=== PATIENT | male | born 1945 | race Caucasian/White ===

== ENCOUNTER 2017-09-08 20:30 | Inpatient (IN) | payer MEDICARE, MEDICAID ==
--- NOTE | 2017-09-08 21:03 | ED Physician Chart ---
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 Patient had right scrotal abrasion and skin abrasion behind right knee. Allergies:: Allergies Allergy/AdvReac Type Severity Reaction Status Date / Time No Known Allergies Allergy Verified 09/08/17 20:37 Vitals:: Vital Signs - 8 hr 09/08/17 20:35 Temp 97.9 F HR 96 RR 18 BP 126/84 O2 Sat % 95 ED Review of Systems - Review of Systems General/Constitutional: No fever Skin: Skin lesions Head: No headache Eyes: No pain ENT: No nasal drainage Neck: No neck pain Cardio Vascular: No chest pain Pulmonary: No cough GI: No nausea, No vomiting Musculoskeletal: No bone or joint pain Neurological: No seizure, No dizziness ED Past Medical History - Past Medical History Past Medical History: HTN, DM Social History: Non Smoker (former smoker), No Alcohol, No Drug Use Surgical History: Appendectomy, other (bilateral BKAs) Family Medical History - Family Member Mother History Unknown: Yes Ethnicity: Non- ED Physical Exam - Physical Examination General/Constitutional: Awake Head: Atraumatic Eyes: PERRL Other Skin comments:: right scrotal abrasion and skin abrasion behind right knee Neck: No nuchal rigidity Respiratory: No Wheeze/Rhonchi/Rales Cardio Vascular: RRR, No murmur, gallop, rubs, NL S1 S2 GI: No tenderness/rebounding/guarding Other GI comments:: mid-abdomen incision well healed Other Extremities comments:: Bilateral BKAs Neuro/Psych: Alert/oriented ED Labs/Radiology/EKG Results - Lab Results Results: Laboratory Last Values WBC 7.3 Th/cmm (4.8-10.8) 09/08/17 21:19 RBC 4.97 Mil/cmm (3.80-5.80) 09/08/17 21:19 Hgb 16.0 gm/dL (12-16) 09/08/17 21:19 Hct 47.6 % (41.0-60) 09/08/17 21:19 MCV 95.8 fl (80-99) 09/08/17 21:19 MCH 32.2 pg (27.0-31.0) H 09/08/17 21:19 MCHC Differential 33.6 pg (28.0-36.0) 09/08/17 21:19 RDW 13.5 % (11.5-20.0) 09/08/17 21:19 Plt Count 150 Th/cmm (150-400) 09/08/17 21:19 MPV 7.2 fl 09/08/17 21:19 Neutrophils % 50.3 % (40.0-80.0) 09/08/17 21:19 Lymphocytes % 33.7 % (20.0-50.0) 09/08/17 21:19 Monocytes % 8.7 % (2.0-10.0) 09/08/17 21: Eosinophils % 6.3 % (0.0-5.0) H 09/08/17 21: Basophils % 1.0 % (0.0-2.0) 09/08/17 21:19 PT 10.0 SECONDS (9.5-11.5) 09/08/17 21:19 INR 0.96 (0.5-1.4) 09/08/17 21:19 PTT (Actin FS) 26.5 SECONDS (26.0-38.0) 09/08/17 21:19 Sodium 132 mEq/L (136-145) L 09/08/17 21:19 Potassium 4.5 mEq/L (3.5-5.1) 09/08/17 21:19 Chloride 98 mEq/L (98-107) 09/08/17 21:19 Carbon Dioxide 27.7 mEq/L (21.0-31.0) 09/08/17 21:19 Anion Gap 10.8 (7.0-16.0) 09/08/17 21:19 BUN 27 mg/dL (7-25) H 09/08/17 21:19 Creatinine 1.3 mg/dL (0.7-1.3) 09/08/17 21:19 Est GFR ( Amer) TNP 09/08/17 21:19 Est GFR (Non-Af Amer) TNP 09/08/17 21:19 BUN/Creatinine Ratio 20.8 09/08/17 21:19 Glucose 429 mg/dL (70-105) H 09/08/17 21:19 Calcium 9.6 mg/dL (8.6-10.3) 09/08/17 21:19 Magnesium 2.1 mg/dL (1.9-2.7) 09/08/17 21:19 Total Bilirubin 0.6 mg/dL (0.3-1.0) 09/08/17 21:19 AST 16 U/L (13-39) 09/08/17 21:19 ALT 17 U/L (7-52) 09/08/17 21:19 Alkaline Phosphatase 65 U/L (34-104) 09/08/17 21:19 Troponin I 0.02 ng/mL (0.01-0.05) 09/08/17 21: B-Natriuretic Peptide 215.0 pg/mL (5.0-100.0) H 09/08/17 21:19 Total Protein 7.5 gm/dL (6.0-8.3) 09/08/17 21: Albumin 3.9 gm/dL (4.2-5.5) L 09/08/17 21:19 Globulin 3.6 gm/dL 09/08/17 21:19 Albumin/Globulin Ratio 1.1 (1.0-1.8) 09/08/17 21: TSH 2.50 uIU/ml (0.34-5.60) 09/08/17 21:19 - Radiology Results Results: CXR: No focal consolidation - EKG Interpretations EKG Time:: 21:12 Rate & Rhythm: 94 bpm, sinus rhythm Intervals: Prolonged AK interval Comments:: Non specific changes of ST-T, V2-V5 ED Assessment - Assessment General Assessment: Dehydration Hyponatremia DM II, uncontrolled Bilateral BKAs Assessment/Comments:: CBC, CMP, Trop I, BNP, UA CXR, EKG NS 1L IV bolus Insulin regular 10 unit SQ Admit to telemetry ED Septic Shock - . Is Septic Shock (SBP<90, OR Lactate>4 mmol\L) present?: No - <6hrs of presentation: Vital Signs: Vital Signs - 8 hr 09/08/17 20:35 Temp 97.9 F HR 96 RR 18 BP 126/84 O2 Sat % 95 ED Reassessment (Disposition) - Reassessment Reassessment Condition:: Improved - Patient Disposition Admitting Medical Physician:: Ronald Gutierrez ED Discharge Plan - Patient Disposition Admit/Discharge/Transfer: Acute Care w/in this hosp Condition at Disposition: Stable
[2017-09-08 21:31] LABS: % EOSINOPHILS 6.3 % (0.0-5.0); % LYMPHOCYTES 33.7 % (20.0-50.0); % MONOCYTES 8.7 % (2.0-10.0); % NEUTROPHILS 50.3 % (40.0-80.0); BASOPHILE ABSOLUTE 0.1 Th/cumm (0-0.2); EOSINOPHILE ABSOLUTE 0.5 Th/cmm (0.1-0.4); HEMATOCRIT 47.6 % (41.0-60); LYMPHOCYTE ABSOLUTE 2.5 Th/cmm (1.5-3.0); MEAN CELL VOLUME 95.8 fl (80-99); MEAN CORPUSCULAR HEMOGLOBIN 32.2 pg (27.0-31.0); MEAN CORPUSCULAR HGB CONC 33.6 pg (28.0-36.0); MEAN PLATELET VOLUME 7.2 fl; MONOCYTE ABSOLUTE 0.6 Th/cmm (0.3-1.0); NEUTROPHILE ABSOLUTE 3.6 Th/cmm (1.8-8.0); PLATELET COUNT 150 Th/cmm (150-400); RED BLOOD COUNT 4.97 Mil/cmm (3.80-5.80); RED CELL DISTRIBUTION WIDTH 13.5 % (11.5-20.0); WHITE BLOOD COUNT 7.3 Th/cmm (4.8-10.8)
[2017-09-08 21:58] LABS: ALB/GLOB RATIO 1.1 (1.0-1.8); ALBUMIN 3.9 gm/dL (4.2-5.5); ALKALINE PHOSPHATASE 65 U/L (34-104); ANION GAP 10.8 (7.0-16.0); BILIRUBIN,TOTAL 0.6 mg/dL (0.3-1.0); BUN - UREA NITROGEN 27 mg/dL (7-25); CALCIUM SERUM 9.6 mg/dL (8.6-10.3); CARBON DIOXIDE 27.7 mEq/L (21.0-31.0); CHLORIDE 98 mEq/L (98-107); CREATININE - SERUM 1.3 mg/dL (0.7-1.3); GLUCOSE 429 mg/dL (70-105); MAGNESIUM 2.1 mg/dL (1.9-2.7); POTASSIUM SERUM 4.5 mEq/L (3.5-5.1); SGOT 16 U/L (13-39); SGPT/ALT 17 U/L (7-52); SODIUM SERUM 132 mEq/L (136-145); TOTAL PROTEIN,SERUM 7.5 gm/dL (6.0-8.3)
[2017-09-08] MEDS ORDERED: Sodium Chloride 0.9% 1,000 ML IV ONE (22:02)
[2017-09-08] MEDS ORDERED: INSULIN HUMAN REGULAR 100 UNITS/ML UNIT SUBQ ONE (22:04)
[2017-09-08] MEDS ORDERED: INSULIN HUMAN REGULAR 100 UNITS/ML UNIT ONE (22:21)
[2017-09-08 23:11] LABS: INR 0.96 (0.5-1.4)
[2017-09-08] MEDS ORDERED: Maalox 30 mL Cup PO PRN (23:14)
[2017-09-08] MEDS ORDERED: guaiFENesin 200 MG/10 ML UDC PO PRN (23:14)
[2017-09-09] MEDS: Sodium Chloride 0.9% 1,000 ML IV SCH ×2 (00:57→13:58)
[2017-09-09] MEDS: Ipratropium Neb 0.5 mg/2.5 mL UD HHN SCH ×4 (06:52→19:11)
[2017-09-09] MEDS: Albuterol Nebulizer 2.5mg/3mL HHN SCH ×4 (06:52→19:11)
[2017-09-09] MEDS: INSULIN ASPART, RECOMBINANT 100 UNITS/ML SUBQ SCH ×4 (07:01→21:30)
[2017-09-09] MEDS: Levothyroxine 0.075 Mg Tab PO SCH (07:02)
--- NOTE | 2017-09-09 08:42 | Diagnostic Imaging Report ---
CHEST X-RAY: AP view INDICATION: Shortness of breath COMPARISON: None FINDINGS: Mild increased interstitial lung markings are noted. Suboptimal lung volumes are noted. There is no focal consolidation or pleural effusions The heart is normal in size. The osseous structures demonstrate no acute abnormalities. IMPRESSION: Mild increased interstitial lung markings, nonspecific and may be due to chronic lung changes. A marginal degree of congestion is considered less likely. Please correlate clinically. No focal consolidation identified.
--- NOTE | 2017-09-09 13:58 | Diagnostic Imaging Report ---
Head CT without intravenous contrast Indication: Altered level of consciousness Comparison: None Technique: Axial images were obtained from the vertex to the skull base without IV contrast. Coronal reconstructions were made. Total DLP: 855, CTDI39 FINDINGS: Images of the brain obtained without contrast demonstrate no acute hemorrhage. Atrophy is noted. Diffuse white matter disease. Atherosclerosis.. The [place]-white matter differentiation is preserved. There is no mass effect or midline shift. No skull fractures identified. There is soft tissue swelling of the left parietal scalp.. The paranasal sinuses are clear. IMPRESSION: No evidence of acute intracranial hemorrhage. Atrophy. Diffuse supratentorial white matter disease which is nonspecific and may be due to chronic microvessel ischemia. Atherosclerotic vascular disease. Minimal soft tissue swelling of the left parietal scalp, correlate clinically.
--- NOTE | 2017-09-09 15:40 | Internal Medicine Prog Note ---
Internal Medicine Subjective - Subjective Service Date: 09/09/17 ([facility] [id number]) Internal Medicine Objective - Results Result Diagrams: 09/08/17 21:19 09/08/17 21: Recent Labs: Laboratory Last Values WBC 7.3 Th/cmm (4.8-10.8) 09/08/17 21:19 RBC 4.97 Mil/cmm (3.80-5.80) 09/08/17 21:19 Hgb 16.0 gm/dL (12-16) 09/08/17 21:19 Hct 47.6 % (41.0-60) 09/08/17 21:19 MCV 95.8 fl (80-99) 09/08/17 21:19 MCH 32.2 pg (27.0-31.0) H 09/08/17 21: MCHC Differential 33.6 pg (28.0-36.0) 09/08/17 21: RDW 13.5 % (11.5-20.0) 09/08/17 21: Plt Count 150 Th/cmm (150-400) 09/08/17 21:19 MPV 7.2 fl 09/08/17 21:19 Neutrophils % 50.3 % (40.0-80.0) 09/08/17 21: Lymphocytes % 33.7 % (20.0-50.0) 09/08/17 21: Monocytes % 8.7 % (2.0-10.0) 09/08/17 21: Eosinophils % 6.3 % (0.0-5.0) H 09/08/17 21: Basophils % 1.0 % (0.0-2.0) 09/08/17 21:19 PT 10.0 SECONDS (9.5-11.5) 09/08/17 21:19 INR 0.96 (0.5-1.4) 09/08/17 21:19 PTT (Actin FS) 26.5 SECONDS (26.0-38.0) 09/08/17 21:19 Sodium 132 mEq/L (136-145) L 09/08/17 21:19 Potassium 4.5 mEq/L (3.5-5.1) 09/08/17 21:19 Chloride 98 mEq/L (98-107) 09/08/17 21:19 Carbon Dioxide 27.7 mEq/L (21.0-31.0) 09/08/17 21:19 Anion Gap 10.8 (7.0-16.0) 09/08/17 21:19 BUN 27 mg/dL (7-25) H 09/08/17 21:19 Creatinine 1.3 mg/dL (0.7-1.3) 09/08/17 21:19 Est GFR ( Amer) TNP 09/08/17 21:19 Est GFR (Non-Af Amer) TNP 09/08/17 21:19 BUN/Creatinine Ratio 20.8 09/08/17 21:19 Glucose 429 mg/dL (70-105) H 09/08/17 21:19 POC Glucose 297 MG/DL (70 - 105) H 09/09/17 11:30 Calcium 9.6 mg/dL (8.6-10.3) 09/08/17 21:19 Magnesium 2.1 mg/dL (1.9-2.7) 09/08/17 21:19 Total Bilirubin 0.6 mg/dL (0.3-1.0) 09/08/17 21:19 AST 16 U/L (13-39) 09/08/17 21:19 ALT 17 U/L (7-52) 09/08/17 21:19 Alkaline Phosphatase 65 U/L (34-104) 09/08/17 21:19 Troponin I 0.02 ng/mL (0.01-0.05) 09/08/17 21:19 B-Natriuretic Peptide 215.0 pg/mL (5.0-100.0) H 09/08/17 21:19 Total Protein 7.5 gm/dL (6.0-8.3) 09/08/17 21:19 Albumin 3.9 gm/dL (4.2-5.5) L 09/08/17 21:19 Globulin 3.6 gm/dL 09/08/17 21:19 Albumin/Globulin Ratio 1.1 (1.0-1.8) 09/08/17 21:19 TSH 2.50 uIU/ml (0.34-5.60) 09/08/17 21:19 - Physical Exam Vitals and I&O: Vital Signs Temp 97.5 F 09/09/17 11:59 Pulse 74 09/09/17 14:10 Resp 20 09/09/17 14:10 BP 119/74 09/09/17 11:59 Pulse Ox 96 09/09/17 14:10 Intake & Output 09/08/17 09/09/17 09/09/17 18:59 06:59 18:59 Intake Total 300 1000 Balance 300 1000 Weight (lbs) 200 lb Intake: Intake, IV Amount 1000 Sodium Chloride 0.9% 1, 1000 000 ml @ 80 mls/hr IV . [id number] [facility] Rx#:[id number] Oral 300 Other: # Voids 2 # Bowel Movements 0 Stool Characteristics Soft Weight Source Bedscale Active Medications: Current Medications Acetaminophen (Tylenol) 650 mg PO Q4H PRN PRN Reason: Pain Or Fever above 101 Stop: 11/07/17 23:13 Al Hydrox/Mg Hydrox/Simethicone (Maalox) 30 ml PO Q6H PRN PRN Reason: Dyspepsia Stop: 11/07/17 23:13 Albuterol Sulfate (Albuterol 2.5mg/3ml Neb Ud) 2.5 mg HHN QIDRT [facility] Stop: 11/08/17 06:59 Last Admin: 09/09/17 14:10 Dose: 2.5 mg Carvedilol (Coreg) 3.125 mg PO BID [facility] Stop: 11/08/17 08:59 Last Admin: 09/09/17 08:11 Dose: 3.125 mg Famotidine (Pepcid) 20 mg PO DAILY [facility] Stop: 11/08/17 08:59 Last Admin: 09/09/17 08:11 Dose: 20 mg Folic Acid (Folate) 1 mg PO DAILY [facility] Stop: 11/08/17 08:59 Last Admin: 09/09/17 08:12 Dose: 1 mg Gabapentin (Neurontin) 300 mg PO DAILY [facility] Stop: 11/08/17 08:59 Last Admin: 09/09/17 08:11 Dose: 300 mg Guaifenesin (Robitussin) 200 mg PO Q4HR PRN PRN Reason: Cough or Congestion Stop: 11/07/17 23:13 Sodium Chloride (Nacl 0.9%) 1,000 mls @ 80 mls/hr IV .[id number] [facility] Stop: 11/07/17 23:14 Last Admin: 09/09/17 13:58 Dose: 80 mls/hr Insulin Aspart (Novolog) 0 units SUBQ ACHS [facility]; Protocol Stop: 11/08/17 07:29 Last Admin: 09/09/17 11:40 Dose: 4 unit Ipratropium [place] (Atrovent Neb 0.5mg/2.5ml) 0.5 mg HHN QIDRT [facility] Stop: 11/08/17 06:59 Last Admin: 09/09/17 14:10 Dose: 0.5 mg Levothyroxine Sodium (Synthroid) 0.075 mg PO QDAC [facility] Stop: 11/08/17 07:29 Last Admin: 09/09/17 07:02 Dose: 0.075 mg Megestrol Acetate (Megace) 400 mg PO BID [facility]; Protocol Stop: 11/08/17 08:59 Last Admin: 09/09/17 08:11 Dose: 400 mg Ondansetron HCl (Zofran) 4 mg IV Q8H PRN PRN Reason: Nausea / Vomiting Stop: 11/07/17 23:13 Nutritional Asmnt/Malnutr-PDOC - Dietary Evaluation Malnutrition Findings (Please click <Entered> for more info): Nutritional Asmnt/Malnutrition Start: 09/09/17 14: 02 Text: Status: Complete Freq: Protocol: Document 09/09/17 14:02 STEF (Rec: 09/09/17 14:20 STEF [email or web address]) Nutritional Asmnt/Malnutrition Patient General Information Nutritional Screening High Risk Consult Diagnosis ALOC, dehydration, uncontorrl DM Pertinent Medical Hx/Surgical Hx HTN, DM, appendectomy, bi BKA Subjective Information Consult received for FTT, elevated BS. RN called that pt wanted to talk to dietitian about meal ordering. Pt seen lying in bed at time of visit, awake and alert. Assisted pt with lunch and dinner order. Pt is very careful about carb intake. Encouraged pt to have carb in moderate and consistency with meals. Current Diet Order/ Nutrition Support CCHO-60gm Pertinent Medications novolog, synthorid, megace, nacl 0.9% Pertinent Labs 09/08 Na 132, BUN 27, glucose 429, POC 345 09/09 POC 273-197 Nutritional Hx/Data Height 5 ft 8 in Height (Calculated Centimeters) 172.7 Current Weight (lbs) 200 lb Weight (Calculated Kilograms) 90.7 Weight (Calculated Grams) 02976.5 [place] Body Weight 136 Body Mass Index (BMI) 30.4 Weight Status Obese GI Symptoms GI Symptoms None Last BM none Difficult in: None Skin Integrity/Comment: abrasion to right lower buttock Estimated Nutritional Goals BEE in Kcals: Using Current wt Calories/Kcals/Kg 25-30 Kcals Calculated 9213-8336 Protein: Using Current wt Protein g/k-1.2 Protein Calculated 69-83 Fluid: ml 1725-2070ml (1ml/kcal) Nutritional Problem 1. Problem Problem altered nutrition related labs Etiology hx of DM Signs/Symptoms: glucose 429, POC 197-345 Malnutrition Alert Is there a minimum of two criteria No selected? Query Text:Check all the applicable criteria. A minimum of two criteria are recommended for diagnosis of either severe or non-severe malnutrition. Malnutrition Related to Morbid Obesity Malnutrition related to morbid obesity No Intervention/Recommendation Comments 1. Continue with CCHO-60gm diet as ordered. Pt understood diabetic diet. Please assist pt with meal ordering. 2. Monitor PO intake, wt, labs and skin integrity 3. F/U as high risk in 2-3 days, 09/11-09/12 Expected Outcomes/Goals Expected Outcomes/Goals 1. PO intake to meet at least 75% of nutritional needs. 2. Wt stability, skin to remain intact, labs to approach WNL.
--- NOTE | 2017-09-09 17:50 | History & Physical ---
ADMIT DATE: 09/09/2017 CHIEF COMPLAINT: Generalized weakness. HISTORY OF PRESENT ILLNESS: This is a 71-year-old male who is sent from [facility] home. The patient was noted with change of mental status as well as increase in generalized weakness. For further management, the patient is now admitted to the telemetry unit. 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 SOCIAL HISTORY: The patient lives in a [facility] home. The patient is a former smoker. SURGICAL HISTORY: Appendectomy and bilateral BKAs. FAMILY HISTORY: Noncontributory. REVIEW OF SYSTEMS: GENERAL: Denies any fevers and chills. CARDIOVASCULAR: Denies chest pain. RESPIRATORY: Denies shortness of breath. GASTROINTESTINAL: Denies nausea, vomiting and abdominal pain. GENITOURINARY: Denies increased frequency and dysuria. NEUROLOGIC: No headache, seizure or syncope. All systems are reviewed and are negative. PHYSICAL EXAMINATION: GENERAL: Elderly male, awake, alert, in no apparent distress. VITAL SIGNS: Temperature 97.5, heart rate 92, blood pressure 119/74, respiration 18 and O2 97%. HEENT: Head; normocephalic and atraumatic. NECK: Supple. No mass. LUNGS: Clear bilaterally. HEART: Regular rate and rhythm. ABDOMEN: Soft and nontender. LABORATORY DATA: WBC 7.3, H and H 16.0 and 47.6 and platelet of 150. Sodium 132, potassium 4.5, chloride 98, BUN 27, creatinine 1.3, glucose of 429, BNP of 215 and albumin 3.9. DIAGNOSTICS: The patient had a CT of the head done, impression is no evidence of acute intracranial hemorrhage, atrophy, diffuse supratentorial white matter disease, which is nonspecific and may be due to chronic microvessel ischemia, atherosclerotic vascular disease and minimal soft tissue swelling of the left parietal scalp, correlate clinically. The patient also had a chest x-ray done and impression is mild increased interstitial lung markings, nonspecific and may be due to chronic lung changes. The marginal degree of congestion is considered less likely. Please correlate clinically. No focal consolidation identified. ASSESSMENT: Altered level of consciousness, acute dehydration, uncontrolled diabetes, bilateral below-knee amputation and hypertension. PLAN: Will admit the patient to the telemetry unit. We will consult Cardiology due to prolonged OR interval. Will also get Wound Care on the case as well as Psychiatry. Keep patient on IV fluids for hydration. Accu-Chek with sliding scale. We will continue to monitor this patient. [facility]# [id number]
[2017-09-09 21:30] LABS: A1C % 9.6 % (4.0-6.0)
[2017-09-10] MEDS: Sodium Chloride 0.9% 1,000 ML IV SCH ×2 (04:03→16:28)
[2017-09-10 06:31] LABS: % BASOPHILS 0.6 % (0.0-2.0); % EOSINOPHILS 4.6 % (0.0-5.0); % LYMPHOCYTES 31.3 % (20.0-50.0); % MONOCYTES 8.4 % (2.0-10.0); % NEUTROPHILS 55.1 % (40.0-80.0); EOSINOPHILE ABSOLUTE 0.4 Th/cmm (0.1-0.4); HEMATOCRIT 48.2 % (41.0-60); HEMOGLOBIN 16.2 gm/dL (12-16); LYMPHOCYTE ABSOLUTE 2.5 Th/cmm (1.5-3.0); MEAN CELL VOLUME 95.9 fl (80-99); MEAN CORPUSCULAR HEMOGLOBIN 32.2 pg (27.0-31.0); MEAN CORPUSCULAR HGB CONC 33.5 pg (28.0-36.0); MEAN PLATELET VOLUME 7.4 fl; MONOCYTE ABSOLUTE 0.7 Th/cmm (0.3-1.0); NEUTROPHILE ABSOLUTE 4.5 Th/cmm (1.8-8.0); PLATELET COUNT 133 Th/cmm (150-400); RED BLOOD COUNT 5.03 Mil/cmm (3.80-5.80); RED CELL DISTRIBUTION WIDTH 13.3 % (11.5-20.0); WHITE BLOOD COUNT 8.1 Th/cmm (4.8-10.8)
[2017-09-10] MEDS: Levothyroxine 0.075 Mg Tab PO SCH (06:36)
[2017-09-10] MEDS: INSULIN ASPART, RECOMBINANT 100 UNITS/ML SUBQ SCH ×4 (06:37→21:43)
[2017-09-10 06:47] LABS: ALB/GLOB RATIO 1.1 (1.0-1.8); ALBUMIN 3.6 gm/dL (4.2-5.5); ALKALINE PHOSPHATASE 66 U/L (34-104); ANION GAP 10.7 (7.0-16.0); BILIRUBIN,TOTAL 0.8 mg/dL (0.3-1.0); BUN - UREA NITROGEN 20 mg/dL (7-25); CALCIUM SERUM 9.1 mg/dL (8.6-10.3); CARBON DIOXIDE 23.2 mEq/L (21.0-31.0); CHLORIDE 104 mEq/L (98-107); GLUCOSE 246 mg/dL (70-105); MAGNESIUM 1.9 mg/dL (1.9-2.7); POTASSIUM SERUM 3.9 mEq/L (3.5-5.1); SGOT 13 U/L (13-39); SGPT/ALT 13 U/L (7-52); SODIUM SERUM 134 mEq/L (136-145); TOTAL PROTEIN,SERUM 6.8 gm/dL (6.0-8.3)
[2017-09-10] MEDS: Ipratropium Neb 0.5 mg/2.5 mL UD HHN SCH ×4 (06:53→18:56)
[2017-09-10] MEDS: Albuterol Nebulizer 2.5mg/3mL HHN SCH ×4 (06:53→18:56)
--- NOTE | 2017-09-10 11:24 | Internal Medicine Prog Note ---
Internal Medicine Subjective - Subjective Service Date: 09/10/17 Patient seen and examined:: with staff Patient is:: awake Per staff patient has:: no adverse event, tolerating meds Internal Medicine Objective - Results Result Diagrams: 09/10/17 05:35 09/10/17 05:35 Recent Labs: Laboratory Last Values WBC 8.1 Th/cmm (4.8-10.8) 09/10/17 05:35 RBC 5.03 Mil/cmm (3.80-5.80) 09/10/17 05:35 Hgb 16.2 gm/dL (12-16) 09/10/17 05:35 Hct 48.2 % (41.0-60) 09/10/17 05:35 MCV 95.9 fl (80-99) 09/10/17 05:35 MCH 32.2 pg (27.0-31.0) H 09/10/17 05:35 MCHC Differential 33.5 pg (28.0-36.0) 09/10/17 05:35 RDW 13.3 % (11.5-20.0) 09/10/17 05:35 Plt Count 133 Th/cmm (150-400) L 09/10/17 05:35 MPV 7.4 fl 09/10/17 05:35 Neutrophils % 55.1 % (40.0-80.0) 09/10/17 05:35 Lymphocytes % 31.3 % (20.0-50.0) 09/10/17 05:35 Monocytes % 8.4 % (2.0-10.0) 09/10/17 05:35 Eosinophils % 4.6 % (0.0-5.0) 09/10/17 05:35 Basophils % 0.6 % (0.0-2.0) 09/10/17 05:35 PT 10.0 SECONDS (9.5-11.5) 09/08/17 21:19 INR 0.96 (0.5-1.4) 09/08/17 21:19 PTT (Actin FS) 26.5 SECONDS (26.0-38.0) 09/08/17 21:19 Sodium 134 mEq/L (136-145) L 09/10/17 05:35 Potassium 3.9 mEq/L (3.5-5.1) 09/10/17 05:35 Chloride 104 mEq/L (98-107) 09/10/17 05:35 Carbon Dioxide 23.2 mEq/L (21.0-31.0) 09/10/17 05:35 Anion Gap 10.7 (7.0-16.0) 09/10/17 05:35 BUN 20 mg/dL (7-25) 09/10/17 05:35 Creatinine 1.0 mg/dL (0.7-1.3) 09/10/17 05:35 Est GFR ( Amer) TNP 09/10/17 05:35 Est GFR (Non-Af Amer) TNP 09/10/17 05:35 BUN/Creatinine Ratio 20.0 09/10/17 05:35 Glucose 246 mg/dL (70-105) H 09/10/17 05:35 POC Glucose 259 MG/DL (70 - 105) H 09/10/17 05:38 Hemoglobin A1c % 9.6 % (4.0-6.0) H 09/08/17 21:19 Calcium 9.1 mg/dL (8.6-10.3) 09/10/17 05:35 Magnesium 1.9 mg/dL (1.9-2.7) 09/10/17 05:35 Total Bilirubin 0.8 mg/dL (0.3-1.0) 09/10/17 05:35 AST 13 U/L (13-39) 09/10/17 05:35 ALT 13 U/L (7-52) 09/10/17 05:35 Alkaline Phosphatase 66 U/L (34-104) 09/10/17 05:35 Troponin I 0.02 ng/mL (0.01-0.05) 09/08/17 21:19 B-Natriuretic Peptide 215.0 pg/mL (5.0-100.0) H 09/08/17 21:19 Total Protein 6.8 gm/dL (6.0-8.3) 09/10/17 05:35 Albumin 3.6 gm/dL (4.2-5.5) L 09/10/17 05:35 Globulin 3.2 gm/dL 09/10/17 05:35 Albumin/Globulin Ratio 1.1 (1.0-1.8) 09/10/17 05:35 TSH 2.50 uIU/ml (0.34-5.60) 09/08/17 21:19 - Physical Exam Vitals and I&O: Vital Signs Temp 96.8 F 09/10/17 08:00 Pulse 91 09/10/17 11:14 Resp 20 09/10/17 11:14 BP 105/65 09/10/17 10:03 Pulse Ox 97 09/10/17 11:14 Intake & Output 09/09/17 09/10/17 09/10/17 18:59 06:59 18:59 Intake Total 1000 1240 Balance 1000 1240 Weight (lbs) 200 lb Intake: Intake, IV Amount 1000 1000 Sodium Chloride 0.9% 1, 1000 1000 000 ml @ 80 mls/hr IV . [id number] [facility] Rx#:[id number] Oral 240 Other: # Voids 3 Stool Characteristics Soft Soft Weight Source Bedscale Active Medications: Current Medications Acetaminophen (Tylenol) 650 mg PO Q4H PRN PRN Reason: Pain Or Fever above 101 Stop: 11/07/17 23:13 Al Hydrox/Mg Hydrox/Simethicone (Maalox) 30 ml PO Q6H PRN PRN Reason: Dyspepsia Stop: 11/07/17 23:13 Albuterol Sulfate (Albuterol 2.5mg/3ml Neb Ud) 2.5 mg HHN QIDRT [facility] Stop: 11/08/17 06:59 Last Admin: 09/10/17 11:14 Dose: 2.5 mg Carvedilol (Coreg) 3.125 mg PO BID [facility] Stop: 11/08/17 08:59 Last Admin: 09/10/17 10:03 Dose: 3.125 mg Famotidine (Pepcid) 20 mg PO DAILY [facility] Stop: 11/08/17 08:59 Last Admin: 09/10/17 10:01 Dose: 20 mg Folic Acid (Folate) 1 mg PO DAILY [facility] Stop: 11/08/17 08:59 Last Admin: 09/10/17 10:01 Dose: 1 mg Gabapentin (Neurontin) 300 mg PO DAILY [facility] Stop: 11/08/17 08:59 Last Admin: 09/10/17 10:01 Dose: 300 mg Guaifenesin (Robitussin) 200 mg PO Q4HR PRN PRN Reason: Cough or Congestion Stop: 11/07/17 23:13 Sodium Chloride (Nacl 0.9%) 1,000 mls @ 80 mls/hr IV .[id number] [facility] Stop: 11/07/17 23:14 Last Admin: 09/10/17 04:03 Dose: 80 mls/hr Insulin Aspart (Novolog) 0 units SUBQ ACHS [facility]; Protocol Stop: 11/08/17 07:29 Last Admin: 09/10/17 06:37 Dose: 4 unit Ipratropium [place] (Atrovent Neb 0.5mg/2.5ml) 0.5 mg HHN QIDRT [facility] Stop: 11/08/17 06:59 Last Admin: 09/10/17 11:14 Dose: 0.5 mg Levothyroxine Sodium (Synthroid) 0.075 mg PO QDAC [facility] Stop: 11/08/17 07:29 Last Admin: 09/10/17 06:36 Dose: 0.075 mg Megestrol Acetate (Megace) 400 mg PO BID [facility]; Protocol Stop: 11/08/17 08:59 Last Admin: 09/10/17 10:03 Dose: 400 mg Ondansetron HCl (Zofran) 4 mg IV Q8H PRN PRN Reason: Nausea / Vomiting Stop: 11/07/17 23:13 General: weak, alert Neck: Supple Lungs: CTAB Cardiovascular: RRR, Normal S1, Normal S2, without murmur Abdomen: soft, non-tender, non-distended, positive bowel sound Neurological: alert Internal Medicine Assmt/Plan - Assessment Assessment: ALOC ACUTE DEHYDRATION-IMPROVING UNCONTROLLED DM BILATERAL BKA HTN - Plan Plan: continue with PT bmp in am continue accucheck with sliding scale dc planning in am continue current plan of care Nutritional Asmnt/Malnutr-PDOC - Dietary Evaluation Malnutrition Findings (Please click <Entered> for more info): Nutritional Asmnt/Malnutrition Start: 09/09/17 14: 02 Text: Status: Complete Freq: Protocol: Document 09/09/17 14:02 STEF (Rec: 09/09/17 14:20 STEF [email or web address]) Nutritional Asmnt/Malnutrition Patient General Information Nutritional Screening High Risk Consult Diagnosis ALOC, dehydration, uncontorrl DM Pertinent Medical Hx/Surgical Hx HTN, DM, appendectomy, bi BKA Subjective Information Consult received for FTT, elevated BS. RN called that pt wanted to talk to dietitian about meal ordering. Pt seen lying in bed at time of visit, awake and alert. Assisted pt with lunch and dinner order. Pt is very careful about carb intake. Encouraged pt to have carb in moderate and consistency with meals. Current Diet Order/ Nutrition Support CCHO-60gm Pertinent Medications novolog, synthorid, megace, nacl 0.9% Pertinent Labs 09/08 Na 132, BUN 27, glucose 429, POC 345 09/09 POC 273-197 Nutritional Hx/Data Height 5 ft 8 in Height (Calculated Centimeters) 172.7 Current Weight (lbs) 200 lb Weight (Calculated Kilograms) 90.7 Weight (Calculated Grams) 63286.5 [place] Body Weight 136 Body Mass Index (BMI) 30.4 Weight Status Obese GI Symptoms GI Symptoms None Last BM none Difficult in: None Skin Integrity/Comment: abrasion to right lower buttock Estimated Nutritional Goals BEE in Kcals: Using Current wt Calories/Kcals/Kg 25-30 Kcals Calculated 5457-0514 Protein: Using Current wt Protein g/k-1.2 Protein Calculated 69-83 Fluid: ml 1725-2070ml (1ml/kcal) Nutritional Problem 1. Problem Problem altered nutrition related labs Etiology hx of DM Signs/Symptoms: glucose 429, POC 197-345 Malnutrition Alert Is there a minimum of two criteria No selected? Query Text:Check all the applicable criteria. A minimum of two criteria are recommended for diagnosis of either severe or non-severe malnutrition. Malnutrition Related to Morbid Obesity Malnutrition related to morbid obesity No Intervention/Recommendation Comments 1. Continue with CCHO-60gm diet as ordered. Pt understood diabetic diet. Please assist pt with meal ordering. 2. Monitor PO intake, wt, labs and skin integrity 3. F/U as high risk in 2-3 days, 09/11-09/12 Expected Outcomes/Goals Expected Outcomes/Goals 1. PO intake to meet at least 75% of nutritional needs. 2. Wt stability, skin to remain intact, labs to approach WNL.
[2017-09-10] MEDS: Menthol/Zinc Oxide Oint 113gm Tube TP SCH ×2 (17:39→21:44)
--- NOTE | 2017-09-10 20:14 | Consultation ---
DATE OF CONSULTATION: 09/10/2017 PSYCHIATRIC CONSULTATION PHYSICIAN REQUESTING CONSULTATION: Dr. Gutierrez. REASON FOR CONSULTATION: Acute change in mental status. HISTORY OF PRESENT ILLNESS: This patient is a 71-year-old male, resident of a [facility], admitted here for change in mental status as well as increased generalized weakness. Chart is reviewed. The patient is interviewed. The patient has been cooperative and has been stating that he is 81 years old, even though he is 71 and he is allowed to have his ____ behavior and the patient states that he tends to forget, but that should not be a big deal. The patient has been minimizing the reasons why he has to be in the hospital. The patient is also stating that he had a stroke from thereon. His speech gets struck sometimes and I need to bear with it. The patient is cooperative at this time. The patient is mentioning that he was there at [place] before, but it was expensive then hence we moved to [facility] and he is also going to be moving from there. Sleep is noted to be poor. Appetite is noted to be fair. PAST PSYCHIATRIC HISTORY: The patient denies any prior psychiatric hospitalizations. SOCIAL HISTORY: The patient is stating that he used to be working in the [employer] and he has retired long time ago. He has no family except for a couple of nephews out of state. PHYSICAL OR SEXUAL ABUSE HISTORY: None. LEGAL PROBLEMS: None at this time. SUBSTANCE ABUSE HISTORY: None. SOCIAL HISTORY: The patient is retired, living in a care home center, [facility]. 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 MENTAL STATUS EXAMINATION: The patient is a 71-year-old, cooperative. Eye contact is fair. Mood is noted to be irritable. Affect is constricted. The patient is complaining that he does not like this place and he has not slept a bit last night and the patient is insisting on leaving and looking for a different place. The patient stated that he already found one and we do not need to worry with it. The patient is alert and oriented to place and person and the patient's attention span and concentration are noted to be poor. Short term memory is noted to be poor. Long-term memory seems to be fair. DIAGNOSTIC IMPRESSION: I. Depressive disorder, not otherwise specified. IB. Dementia, vascular type. PLAN: To closely monitor the patient. I encouraged the patient to verbalize the concerns rather than to act out and the patient is going to be given a low dose of the Ambien tonight to help him with the sleep and the patient is going to be closely monitored and the need for antidepressant medication is going to be assessed. Thank you, Dr. Gutierrez for allowing me to participate in the care of this patient. [facility]# [id number]
--- NOTE | 2017-09-10 21:37 | Consultation ---
DATE OF CONSULTATION: 09/09/[address] Gutierrez. HISTORY OF PRESENT ILLNESS: This is a 71-year-old male patient who has a known history of stroke with right-sided weakness, tiredness, poor appetite, and the patient came to the Emergency Room and the patient is admitted for deconditioning. PAST MEDICAL HISTORY: CVA with right-sided weakness, hypertension, diabetes mellitus type 2, bilateral BKA from MRSA, uncontrolled diabetes mellitus, GERD, insulin-dependent diabetes mellitus, and diabetic peripheral neuropathy. FAMILY HISTORY: Unremarkable. SOCIAL HISTORY: No history of smoking or alcohol abuse. ALLERGIES: No known allergies. PHYSICAL EXAMINATION: VITAL SIGNS: Blood pressure 130/70, pulse 70, and respirations 20. HEAD: Normocephalic. No lumps or bumps. EYES: Pupils equal, reactive to light. Fundi show AV nicking, sclerae white, conjunctivae pink. NECK: Carotid 2+. Normal upstroke. JVD flat. Thyroid palpable. Lymph nodes not palpable. CHEST: Shows increased AP diameter. No kyphosis, scoliosis. LUNGS: Bilateral bronchovesicular breath sounds. HEART: PMI fifth intercostal space with lateral to midclavicular line. S1, S2. No S3, S4, soft systolic murmur. ABDOMEN: Soft. Liver and spleen not palpable. No organomegaly. Bowel sounds active. NEUROLOGIC: The patient has CVA with right-sided weakness. CLINICAL IMPRESSION: Altered level of consciousness, etiology unknown; cerebrovascular accident with right-sided weakness, old; hypertension; diabetes mellitus type 2, uncontrolled; insulin-dependent diabetes mellitus; bilateral below the knee amputation secondary to methicillin-resistant Staphylococcus aureus infection; gastroesophageal reflux disease; and diabetic peripheral neuropathy. PLAN: Admit the patient. We will get echocardiogram. Continue to monitor the patient for any arrhythmias. JOB# [id number]
[2017-09-11] MEDS: Levothyroxine 0.075 Mg Tab PO SCH (06:48)
[2017-09-11] MEDS: Albuterol Nebulizer 2.5mg/3mL HHN SCH ×3 (07:26→15:34)
[2017-09-11] MEDS: Ipratropium Neb 0.5 mg/2.5 mL UD HHN SCH ×3 (07:26→15:34)
[2017-09-11] MEDS: INSULIN ASPART, RECOMBINANT 100 UNITS/ML SUBQ SCH ×2 (08:04→12:45)
--- NOTE | 2017-09-11 10:50 | Internal Medicine Prog Note ---
Internal Medicine Subjective - Subjective Service Date: 09/11/17 Patient seen and examined:: with staff Patient is:: awake Per staff patient has:: no adverse event, tolerating meds Internal Medicine Objective - Results Result Diagrams: 09/10/17 05:35 09/10/17 05:35 Recent Labs: Laboratory Last Values WBC 8.1 Th/cmm (4.8-10.8) 09/10/17 05:35 RBC 5.03 Mil/cmm (3.80-5.80) 09/10/17 05:35 Hgb 16.2 gm/dL (12-16) 09/10/17 05:35 Hct 48.2 % (41.0-60) 09/10/17 05:35 MCV 95.9 fl (80-99) 09/10/17 05:35 MCH 32.2 pg (27.0-31.0) H 09/10/17 05:35 MCHC Differential 33.5 pg (28.0-36.0) 09/10/17 05:35 RDW 13.3 % (11.5-20.0) 09/10/17 05:35 Plt Count 133 Th/cmm (150-400) L 09/10/17 05:35 MPV 7.4 fl 09/10/17 05:35 Neutrophils % 55.1 % (40.0-80.0) 09/10/17 05:35 Lymphocytes % 31.3 % (20.0-50.0) 09/10/17 05:35 Monocytes % 8.4 % (2.0-10.0) 09/10/17 05:35 Eosinophils % 4.6 % (0.0-5.0) 09/10/17 05:35 Basophils % 0.6 % (0.0-2.0) 09/10/17 05:35 PT 10.0 SECONDS (9.5-11.5) 09/08/17 21:19 INR 0.96 (0.5-1.4) 09/08/17 21:19 PTT (Actin FS) 26.5 SECONDS (26.0-38.0) 09/08/17 21:19 Sodium 134 mEq/L (136-145) L 09/10/17 05:35 Potassium 3.9 mEq/L (3.5-5.1) 09/10/17 05:35 Chloride 104 mEq/L (98-107) 09/10/17 05:35 Carbon Dioxide 23.2 mEq/L (21.0-31.0) 09/10/17 05:35 Anion Gap 10.7 (7.0-16.0) 09/10/17 05:35 BUN 20 mg/dL (7-25) 09/10/17 05:35 Creatinine 1.0 mg/dL (0.7-1.3) 09/10/17 05:35 Est GFR ( Amer) TNP 09/10/17 05:35 Est GFR (Non-Af Amer) TNP 09/10/17 05:35 BUN/Creatinine Ratio 20.0 09/10/17 05:35 Glucose 246 mg/dL (70-105) H 09/10/17 05:35 POC Glucose 206 MG/DL (70-105) H 09/11/17 06:43 Hemoglobin A1c % 9.6 % (4.0-6.0) H 09/08/17 21:19 Calcium 9.1 mg/dL (8.6-10.3) 09/10/17 05:35 Magnesium 1.9 mg/dL (1.9-2.7) 09/10/17 05:35 Total Bilirubin 0.8 mg/dL (0.3-1.0) 09/10/17 05:35 AST 13 U/L (13-39) 09/10/17 05:35 ALT 13 U/L (7-52) 09/10/17 05:35 Alkaline Phosphatase 66 U/L (34-104) 09/10/17 05:35 Troponin I 0.02 ng/mL (0.01-0.05) 09/08/17 21:19 B-Natriuretic Peptide 215.0 pg/mL (5.0-100.0) H 09/08/17 21:19 Total Protein 6.8 gm/dL (6.0-8.3) 09/10/17 05:35 Albumin 3.6 gm/dL (4.2-5.5) L 09/10/17 05:35 Globulin 3.2 gm/dL 09/10/17 05:35 Albumin/Globulin Ratio 1.1 (1.0-1.8) 09/10/17 05:35 TSH 2.50 uIU/ml (0.34-5.60) 09/08/17 21:19 - Physical Exam Vitals and I&O: Vital Signs Temp 96.3 F 09/11/17 07:48 Pulse 94 09/11/17 10:00 Resp 18 09/11/17 07:48 BP 149/92 09/11/17 10:00 Pulse Ox 96 09/11/17 07:48 Intake & Output 09/10/17 09/11/17 09/11/17 18:59 06:59 18:59 Intake Total 821.260 7828.667 Output Total 400 Balance 993.333 654.667 Weight (lbs) 203 lb 1.6 oz Intake: Intake, IV Amount 993.333 254.667 Sodium Chloride 0.9% 1, 993.333 254.667 000 ml @ 80 mls/hr IV . [id number] [facility] Rx#:[id number] Oral 800 Output: Urine 400 Other: # Bowel Movements 0 Stool Characteristics Soft Brown Weight Source Bedscale Active Medications: Current Medications Acetaminophen (Tylenol) 650 mg PO Q4H PRN PRN Reason: Pain Or Fever above 101 Stop: 11/07/17 23:13 Al Hydrox/Mg Hydrox/Simethicone (Maalox) 30 ml PO Q6H PRN PRN Reason: Dyspepsia Stop: 11/07/17 23:13 Albuterol Sulfate (Albuterol 2.5mg/3ml Neb Ud) 2.5 mg HHN QIDRT [facility] Stop: 11/08/17 06:59 Last Admin: 09/11/17 07:26 Dose: 2.5 mg Calamine/Phenol (Calmoseptine) 1 appl TP QID [facility] Stop: 11/09/17 16:59 Last Admin: 09/10/17 21:44 Dose: 1 appl Carvedilol (Coreg) 3.125 mg PO BID [facility] Stop: 11/08/17 08:59 Last Admin: 09/11/17 10:00 Dose: 3.125 mg Famotidine (Pepcid) 20 mg PO DAILY [facility] Stop: 11/08/17 08:59 Last Admin: 09/11/17 10:10 Dose: Not Given Folic Acid (Folate) 1 mg PO DAILY [facility] Stop: 08/12/18 08:59 Last Admin: 09/11/17 09:59 Dose: 1 mg Gabapentin (Neurontin) 300 mg PO DAILY [facility] Stop: 11/08/17 08:59 Last Admin: 09/11/17 10:12 Dose: Not Given Guaifenesin (Robitussin) 200 mg PO Q4HR PRN PRN Reason: Cough or Congestion Stop: 11/07/17 23:13 Sodium Chloride (Nacl 0.9%) 1,000 mls @ 80 mls/hr IV .[id number] [facility] Stop: 11/07/17 23:14 Last Infusion: 09/10/17 19:39 Dose: 80 mls/hr Insulin Aspart (Novolog) 0 units SUBQ ACHS [facility]; Protocol Stop: 11/08/17 07:29 Last Admin: 09/11/17 08:04 Dose: 2 unit Ipratropium [place] (Atrovent Neb 0.5mg/2.5ml) 0.5 mg HHN QIDRT [facility] Stop: 11/08/17 06:59 Last Admin: 09/11/17 07:26 Dose: 0.5 mg Levothyroxine Sodium (Synthroid) 0.075 mg PO QDAC [facility] Stop: 11/08/17 07:29 Last Admin: 09/11/17 06:48 Dose: 0.075 mg Megestrol Acetate (Megace) 400 mg PO BID [facility]; Protocol Stop: 11/08/17 08:59 Last Admin: 09/11/17 09:56 Dose: 400 mg Ondansetron HCl (Zofran) 4 mg IV Q8H PRN PRN Reason: Nausea / Vomiting Stop: 11/07/17 23:13 Zolpidem Tartrate (Ambien) 5 mg PO HS PRN PRN Reason: Insomnia Stop: 11/09/17 19:41 Last Admin: 09/10/17 21:44 Dose: 5 mg General: weak, alert Neck: Supple Lungs: CTAB Cardiovascular: RRR, Normal S1, Normal S2, without murmur Abdomen: soft, non-tender, non-distended, positive bowel sound Neurological: alert Internal Medicine Assmt/Plan - Assessment Assessment: ALOC ACUTE DEHYDRATION-IMPROVING UNCONTROLLED DM BILATERAL BKA HTN - Plan Plan: continue with PT continue accucheck with sliding scale continue current plan of care Nutritional Asmnt/Malnutr-PDOC - Dietary Evaluation Malnutrition Findings (Please click <Entered> for more info): Nutritional Asmnt/Malnutrition Start: 09/09/17 14: 02 Text: Status: Complete Freq: Protocol: Document 09/09/17 14:02 STEF (Rec: 09/09/17 14:20 STEF [email or web address]) Nutritional Asmnt/Malnutrition Patient General Information Nutritional Screening High Risk Consult Diagnosis ALOC, dehydration, uncontorrl DM Pertinent Medical Hx/Surgical Hx HTN, DM, appendectomy, bi BKA Subjective Information Consult received for FTT, elevated BS. RN called that pt wanted to talk to dietitian about meal ordering. Pt seen lying in bed at time of visit, awake and alert. Assisted pt with lunch and dinner order. Pt is very careful about carb intake. Encouraged pt to have carb in moderate and consistency with meals. Current Diet Order/ Nutrition Support CCHO-60gm Pertinent Medications novolog, synthorid, megace, nacl 0.9% Pertinent Labs 09/08 Na 132, BUN 27, glucose 429, POC 345 09/09 POC 273-197 Nutritional Hx/Data Height 5 ft 8 in Height (Calculated Centimeters) 172.7 Current Weight (lbs) 200 lb Weight (Calculated Kilograms) 90.7 Weight (Calculated Grams) 00545.5 [place] Body Weight 136 Body Mass Index (BMI) 30.4 Weight Status Obese GI Symptoms GI Symptoms None Last BM none Difficult in: None Skin Integrity/Comment: abrasion to right lower buttock Estimated Nutritional Goals BEE in Kcals: Using Current wt Calories/Kcals/Kg 25-30 Kcals Calculated 5466-3499 Protein: Using Current wt Protein g/k-1.2 Protein Calculated 69-83 Fluid: ml 1725-2070ml (1ml/kcal) Nutritional Problem 1. Problem Problem altered nutrition related labs Etiology hx of DM Signs/Symptoms: glucose 429, POC 197-345 Malnutrition Alert Is there a minimum of two criteria No selected? Query Text:Check all the applicable criteria. A minimum of two criteria are recommended for diagnosis of either severe or non-severe malnutrition. Malnutrition Related to Morbid Obesity Malnutrition related to morbid obesity No Intervention/Recommendation Comments 1. Continue with CCHO-60gm diet as ordered. Pt understood diabetic diet. Please assist pt with meal ordering. 2. Monitor PO intake, wt, labs and skin integrity 3. F/U as high risk in 2-3 days, 09/11-09/12 Expected Outcomes/Goals Expected Outcomes/Goals 1. PO intake to meet at least 75% of nutritional needs. 2. Wt stability, skin to remain intact, labs to approach WNL.
--- NOTE | 2017-09-11 14:27 | Cardiology ---
09/10/[address] Gutierrez. M-MODE ECHOCARDIOGRAM: Mitral valve, anterior leaflet of mitral valve shows normal excursion, EF velocity. Posterior leaflet of mitral valve shows normal excursion. Left ventricle posterior wall shows increased thickness, normal excursion. Interventricular septum shows increased thickness, normal excursion, hypertrophy of the left ventricle, ejection fraction 33%. Left atrium enlarged. Aortic root shows normal dimension, normal excursion of aortic leaflets. CONCLUSION: Cardiomyopathy, ejection fraction 33%. 2D ECHO ON THE SAME PATIENT: Long axis view showed enlarged left ventricular cavity with decreased ejection fraction, hypertrophy of the left ventricle. Left atrium enlarged. Aortic root shows normal dimension, normal excursion of aortic leaflets. Short axis view of mitral valve normal. Short axis view of aortic valve normal. Apical four chamber view shows hypertrophy of the left ventricle, cardiomyopathy, left atrium enlarged, right ventricular cavity, right atrium normal. Doppler study shows mild mitral regurgitation, mild tricuspid regurgitation. CONCLUSION: Cardiomyopathy, ejection fraction 33%, left atrial enlargement, mild mitral regurgitation, mild tricuspid regurgitation. JOB# [id number]
== END 2017-09-11 15:00 | disposition home or self-care (01) | DRG 640 ==
LOC: ER 20:30 → TELE 23:30 → MSI 09-10 09:45
PROVIDERS: ADMIT Internal Medicine; ATTEND Internal Medicine
DX: E86.0 Dehydration (principal); G93.41 Metabolic encephalopathy; I69.351 Hemiplegia and hemiparesis following cerebral infarction affecting right dominant side; E87.1 Hypo-osmolality and hyponatremia; K21.9 Gastro-esophageal reflux disease without esophagitis; E11.65 Type 2 diabetes mellitus with hyperglycemia; E11.42 Type 2 diabetes mellitus with diabetic polyneuropathy; F32.9 Major depressive disorder, single episode, unspecified; F01.50 Vascular dementia, unspecified severity, without behavioral disturbance, psychotic disturbance, mood disturbance, and anxiety; I10 Essential (primary) hypertension; Z89.511 Acquired absence of right leg below knee; Z89.512 Acquired absence of left leg below knee; Z86.14 Personal history of Methicillin resistant Staphylococcus aureus infection; Z90.49 Acquired absence of other specified parts of digestive tract
CPT/HCPCS: 36415-UA; 70450-TC; 71045-TC; 80053-TC; 82948-90; 83036-90; 83735-TC; 83880-TC; 84443-TC; 84484-TC; 85025-TC; 85610-TC; 90779; 93005; 94760; 97530; J1815; J7030; J7613; X3904; Z7610